=== PATIENT | male | born 1980 | race Two or more races ===

== ENCOUNTER 2020-11-14 14:03 | Emergency (ER) | payer OTHER ==
[~2020-11-14] VITALS: Ht 175.3 cm; Wt 104.3 kg
[2020-11-14] MEDS ORDERED: ZESTRIL20 MG (14:09)
[2020-11-14] MEDS ORDERED: AZOR 10-20 MG1 EACH (14:09)
[2020-11-14] MEDS ORDERED: HYDRODIURIL12.5 MG (14:09)
== END 2020-11-14 16:24 | disposition home or self-care (01) ==
LOC: ER 14:03
DX: S61.411A Laceration without foreign body of right hand, initial encounter (principal); W20.8XXA Other cause of strike by thrown, projected or falling object, initial encounter; Y93.02 Activity, running; Y92.832 Beach as the place of occurrence of the external cause; Y99.8 Other external cause status